=== PATIENT | male | born 1970 | race Caucasian/White ===

== ENCOUNTER 2020-10-28 18:16 | Emergency (ER) | payer MEDICAID, OTHER ==
[~2020-10-28] VITALS: Ht 22.9 cm; Wt 93.0 kg
[2020-10-28 21:10] VITALS: BP 140/93
== END 2020-10-28 23:34 | disposition home or self-care (01) ==
LOC: ER 18:23
DX: M41.34 Thoracogenic scoliosis, thoracic region (principal)
CPT/HCPCS: 72128

== ENCOUNTER 2021-10-25 08:31 | Emergency (ER) | payer MEDICAID ==
[~2021-10-25] VITALS: Ht 175.3 cm; Wt 81.6 kg
[2021-10-25] MEDS ORDERED: KETOROLAC TROMETH 30 MG/ML 1ML VIAL IV ONE (09:00)
[2021-10-25 09:15] LABS: Urine Bacteria NONE SEEN /hpf (None Seen); Urine Blood Negative /uL (Negative); Urine Specific Gravity 1.009 (1.001-1.035); Urine WBC <1 /hpf (0 - 3)
[2021-10-25 10:11] LABS: Basophils # (auto) 0 10 ^3/uL (0-0.2); Basophils % (auto) 0.9 % (0.0-2.0); Eosinophils # (auto) 0.3 10 ^3/uL (0-0.8); Eosinophils % (auto) 6.9 % (0.0-7.0); Hematocrit 42.3 % (41.0-53.0); Hemoglobin 14.6 g/dL (13.5-17.5); Lymphocytes # (auto) 1.6 10 ^3/uL (0.4-5.4); Lymphocytes % (auto) 31.9 % (10.0-50.0); Mean Corpuscular Hemoglobin 28.9 pg (28.0-32.0); Mean Corpuscular Hgb Conc. 34.4 g/dL (32.0-36.0); Monocytes # (auto) 0.4 10 ^3/uL (0-1.3); Monocytes % (auto) 7.6 % (0.0-12.0); Neutrophils # (auto) 2.6 10 ^3/uL (1.6-8.6); Neutrophils % (auto) 52.7 % (37.0-80.0); Nucleated Red Blood Cells % 0.1 %; Red Blood Cells 5.04 10^6/uL (4.5-5.90); Red Cell Distribution Width 13.6 % (11.8-14.3)
[2021-10-25 10:39] LABS: Albumin 3.3 g/dL (3.4-5.0); Potassium 4.6 mmol/L (3.5-5.1)
[2021-10-25 10:42] LABS: BUN/Creatinine Ratio 13.7; Bilirubin, Total 0.3 mg/dL (0.2-1.0); Total Protein 7.4 g/dL (6.4-8.2)
[2021-10-25] MEDS ORDERED: IBU600T PO (11:18)
[2021-10-25] MEDS ORDERED: CEPH-509 PO (11:21)
[2021-10-25] MEDS ORDERED: METR500T PO (11:21)
[2021-10-25 12:05] VITALS: BP 140/78
== END 2021-10-25 12:06 | disposition home or self-care (01) ==
LOC: ER 08:31
DX: S29.012A Strain of muscle and tendon of back wall of thorax, initial encounter (principal); K52.9 Noninfective gastroenteritis and colitis, unspecified; M79.18 Myalgia, other site; F17.210 Nicotine dependence, cigarettes, uncomplicated; F12.10 Cannabis abuse, uncomplicated; X58.XXXA Exposure to other specified factors, initial encounter; Y93.89 Activity, other specified; Y92.89 Other specified places as the place of occurrence of the external cause; Y99.8 Other external cause status
CPT/HCPCS: 36415; 74176; 80053; 81001; 85025; 96374; 99284; J1885

== ENCOUNTER 2021-12-15 13:28 | Emergency (ER) | payer MEDICAID ==
[~2021-12-15] VITALS: Ht 175.3 cm; Wt 94.1 kg
[~2021-12-15 13:28] MED LIST: CEPH-509 PO; IBU600T PO; METR500T PO
[2021-12-15] MEDS ORDERED: KETOROLAC TROMETH 30 MG/ML 1ML VIAL IV ONE (15:30)
[2021-12-15] MEDS ORDERED: METOCLOPRAMIDE HCL 5MG/ml INJ 2ml VIAL IV ONE (15:30)
[2021-12-15 15:39] LABS: Basophils # (auto) 0.1 10 ^3/uL (0-0.2); Basophils % (auto) 0.6 % (0.0-2.0); Eosinophils # (auto) 0.2 10 ^3/uL (0-0.8); Eosinophils % (auto) 1.7 % (0.0-7.0); Hematocrit 45.7 % (41.0-53.0); Hemoglobin 14.9 g/dL (13.5-17.5); Lymphocytes # (auto) 2.4 10 ^3/uL (0.4-5.4); Lymphocytes % (auto) 21.7 % (10.0-50.0); Mean Corpuscular Hemoglobin 27.3 pg (28.0-32.0); Mean Corpuscular Hgb Conc. 32.6 g/dL (32.0-36.0); Mean Corpuscular Volume 83.8 fL (80.0-100.0); Monocytes # (auto) 0.9 10 ^3/uL (0-1.3); Monocytes % (auto) 7.9 % (0.0-12.0); Neutrophils # (auto) 7.4 10 ^3/uL (1.6-8.6); Neutrophils % (auto) 68.1 % (37.0-80.0); Red Blood Cells 5.46 10^6/uL (4.5-5.90); Red Cell Distribution Width 13.6 % (11.8-14.3); White Blood Cell 10.9 10^3/uL (4.4-10.8)
[2021-12-15 15:56] LABS: Albumin 3.7 g/dL (3.4-5.0); Calcium 9.2 mg/dL (8.5-10.1); Potassium 4.1 mmol/L (3.5-5.1)
[2021-12-15 15:59] LABS: BUN/Creatinine Ratio 11.6; Bilirubin, Total 0.8 mg/dL (0.2-1.0); Total Protein 7.5 g/dL (6.4-8.2)
[2021-12-15] MEDS ORDERED: levoFLOXacin 500MG 100 ML IV ONE (16:45)
[2021-12-15] MEDS ORDERED: metroNIDAZOLE 500MG/100ML 100 ML IV ONE (16:45)
[2021-12-15 17:00] VITALS: BP 130/72
[2021-12-15 17:40] LABS: Urine Bacteria NONE SEEN /hpf (None Seen); Urine Blood Negative /uL (Negative); Urine Mucus FEW (None Seen); Urine Specific Gravity 1.016 (1.001-1.035); Urine WBC <1 /hpf (0 - 3)
[2021-12-15] MEDS ORDERED: CIPR-173 PO (17:43)
[2021-12-15] MEDS ORDERED: ONDA-144 PO (17:43)
[2021-12-15] MEDS ORDERED: METR500T PO (17:43)
== END 2021-12-15 18:04 | disposition home or self-care (01) ==
LOC: ER 13:28
DX: K57.92 Diverticulitis of intestine, part unspecified, without perforation or abscess without bleeding (principal); F17.210 Nicotine dependence, cigarettes, uncomplicated; F12.10 Cannabis abuse, uncomplicated
CPT/HCPCS: 36415; 74176; 80053; 81001; 83690; 85025; 96374; 96375; 99284; J1885; J1956; J2765; J3490

== ENCOUNTER 2022-07-10 18:16 | Emergency (ER) | payer MEDICAID ==
[~2022-07-10] VITALS: Ht 172.7 cm; Wt 93.8 kg
[~2022-07-10 18:16] MED LIST changes: +CIPR-173 PO; +ONDA-144 PO
[2022-07-10] MEDS ORDERED: HYDROcodone-ACET 10/325MG TAB PO ONE (18:30)
[2022-07-10] MEDS ORDERED: HYDR-4798 PO (20:33)
[2022-07-10] MEDS ORDERED: IBUP800T26 PO (20:33)
[2022-07-10 22:38] VITALS: BP 131/88
== END 2022-07-10 21:58 | disposition home or self-care (01) ==
LOC: ER 18:17
DX: M47.812 Spondylosis without myelopathy or radiculopathy, cervical region (principal); M54.12 Radiculopathy, cervical region; F17.210 Nicotine dependence, cigarettes, uncomplicated; Z79.1 Long term (current) use of non-steroidal anti-inflammatories (NSAID); Z79.2 Long term (current) use of antibiotics; Z79.899 Other long term (current) drug therapy
CPT/HCPCS: 72040

== ENCOUNTER 2023-09-04 11:11 | Emergency (ER) | payer MEDICAID ==
[~2023-09-04] VITALS: Ht 175.3 cm; Wt 104.2 kg
[~2023-09-04 11:11] MED LIST changes: +HYDR-4798 PO; +IBUP-1455 PO
[2023-09-04] MEDS ORDERED: ACET500T58 PO (12:54)
[2023-09-04] MEDS ORDERED: AZIT4SOL EACHEYE (12:54)
[2023-09-04 15:15] VITALS: BP 160/109; PULSE 92; RESP 18; O2SAT 97
== END 2023-09-04 15:16 | disposition home or self-care (01) ==
LOC: ER 11:11
DX: H57.89 Other specified disorders of eye and adnexa (principal); I10 Essential (primary) hypertension; F17.210 Nicotine dependence, cigarettes, uncomplicated; Z79.1 Long term (current) use of non-steroidal anti-inflammatories (NSAID); Z79.2 Long term (current) use of antibiotics; Z79.899 Other long term (current) drug therapy

== ENCOUNTER 2023-10-26 08:25 | Emergency (ER) | payer MEDICAID ==
[~2023-10-26] VITALS: Ht 175.3 cm; Wt 100.4 kg
[~2023-10-26 08:25] MED LIST changes: +ACET500T58 PO; +AZIT4SOL EACHEYE
[2023-10-26 08:52] VITALS: BP 140/94; PULSE 86; RESP 16; TEMP 98.4; O2SAT 96
[2023-10-26] MEDS: FLUORESCEIN SOD OPTH TEST STRIP OP ONE (09:06)
[2023-10-26] MEDS: methylPREDNISolone SOD SUCC 125 MG/2 ML VL IM ONE (09:27)
[2023-10-26] MEDS ORDERED: TRIA0.02 TOP (09:49)
[2023-10-26] MEDS ORDERED: METH4PAK PO (09:49)
[2023-10-26] MEDS ORDERED: TOB03OS OP (09:49)
== END 2023-10-26 10:04 | disposition home or self-care (01) ==
LOC: ER 08:25
DX: S05.02XA Injury of conjunctiva and corneal abrasion without foreign body, left eye, initial encounter (principal); S05.01XA Injury of conjunctiva and corneal abrasion without foreign body, right eye, initial encounter; T78.49XA Other allergy, initial encounter; I10 Essential (primary) hypertension; F17.210 Nicotine dependence, cigarettes, uncomplicated; F15.90 Other stimulant use, unspecified, uncomplicated; Z79.899 Other long term (current) drug therapy; X58.XXXA Exposure to other specified factors, initial encounter; Y93.89 Activity, other specified; Y92.89 Other specified places as the place of occurrence of the external cause; Y99.8 Other external cause status
CPT/HCPCS: 96372; 99283; J2919